=== PATIENT | male | born 1950 | race Caucasian/White ===

== ENCOUNTER 2016-08-03 15:23 | Emergency (ER) | payer OTHER ==
[2016-08-03 16:15] VITALS: BP 138/87
[2016-08-03] MEDS ORDERED: Bacitracin Oint 1 GM U/D Packet TOP ONE (17:38)
--- NOTE | 2016-08-03 17:42 | EDM.PDOC ---
ED HPI Skin/Rash - General Chief Complaint: Laceration Stated Complaint: CUT MIDDLE FINGER ON RT HAND Time Seen by Provider: 08/03/16 16:34 Source: Reports: Patient, RN notes reviewed History Limitations: Reports: No limitations - History of Present Illness INITIAL COMMENTS - FREE TEXT/NARRATIVE: 65-year-old gentleman presents emergency department today with a laceration to digit #3 on his right hand he injured himself with a table saw he has no functional complaints bleeding is controlled - Related Data Allergies Allergy/AdvReac Type Severity Reaction Status Date / Time No Known Allergies Allergy Verified 08/03/16 16:25 Home Meds: Ambulatory Orders Medication Instructions Recorded Confirmed Simvastatin [Zocor] 40 mg PO BEDTIME 08/03/16 08/03/16 Past Medical History Cardiovascular History: Reports: High cholesterol - Infectious Disease History Infectious Disease History: Reports: Chicken pox - Past Surgical History Musculoskeletal Surgical History: Reports: Other (see below) Other Musculoskeletal Surgeries/Procedures:: knee replacement Social & Family History - Tobacco Use Smoking Status *Q: Never Smoker - Caffeine Use Caffeine Use: Reports: Soda - Recreational Drug Use Recreational Drug Use: No ED ROS GENERAL - Review of Systems Review Of Systems: See Below Constitutional: Reports: no symptoms Respiratory: Reports: no symptoms Cardiovascular: Reports: No symptoms Musculoskeletal: Reports: no symptoms Skin: Reports: wound ED EXAM, SKIN/RASH Exam: See Below Text/Narrative:: examination of the right hand there is a 2 cm laceration distal tip of digit #3 it is jagged he has full range motion of digits radial pulses 2+ sensation is intact Exam Limited By: No limitations General Appearance: alert, WD/WN, no apparent distress Course - Vital Signs Last Recorded V/S: Last Vital Signs Temp 97.9 F 08/03/16 16:14 Pulse 71 08/03/16 16:14 Resp 16 08/03/16 16:14 BP 138/87 08/03/16 16:14 Pulse Ox 99 08/03/16 16:14 - Orders/Labs/Meds Orders: Active Orders 24 hr Category Date Time Status Fingers Third Digit Rt F7 [CR] Stat Exams 08/03/16 16:37 Taken Bacitracin [Bacitracin Oint 1 GM] Med 08/03/16 17:38 Once 1 dose TOP ONETIME ONE Meds: Medications Discontinued Medications Generic Name Dose Route Start Last Admin Trade Name Freq PRN Reason Stop Dose Admin Lidocaine HCl 5 ml 08/03/16 16:57 08/03/16 17:30 Xylocaine-Mpf 1% INJECT 08/03/16 16:58 5 ml ONETIME ONE Administration Departure - Departure Time of Disposition: 17:42 Disposition: Home, Self-Care 01 Condition: good Clinical Impression: Laceration of right middle finger Forms: ED Department Discharge Additional Instructions: follow up care instruction sheet, suture removal in 10 days call or return to the ED with worsening of symptoms - My Orders Last 24 Hours: My Active Orders 08/03/16 16:37 Fingers Third Digit Rt F7 [CR] Stat 08/03/16 17:38 Bacitracin [Bacitracin Oint 1 GM] 1 dose TOP ONETIME ONE - Assessment/Plan Last 24 Hours: My Active Orders 08/03/16 16:37 Fingers Third Digit Rt F7 [CR] Stat 08/03/16 17:38 Bacitracin [Bacitracin Oint 1 GM] 1 dose TOP ONETIME ONE Plan: Assessment Acuity = acute Site and laterality = 2 cm laceration distal tip right hand completely through the dermis Etiology = secondary to table saw injury Manifestations = none Location of injury = home Lab values = x-ray of digit #3 I did review films myself I cannot appreciate any acute process, the official read from radiology is pending Plan suture removal in 10 days, follow wound care instruction sheet Patient was in agreement with the plan all questions were answered, they were instructed to return to the emergency department or call for worsening symptoms. This note was dictated using [employer] voice recognition software please call with any questions.
--- NOTE | 2016-08-04 08:49 | CR ---
No fracture. Degenerative changes second DIP joint.
== END 2016-08-03 17:48 | disposition home or self-care (01) ==
LOC: JP.ED 15:23
DX: S61.212A Laceration without foreign body of right middle finger without damage to nail, initial encounter (principal); E78.00 Pure hypercholesterolemia, unspecified; Z98.890 Other specified postprocedural states; W26.8XXA Contact with other sharp object(s), not elsewhere classified, initial encounter
CPT/HCPCS: 73140-26-F7; 73140-F7; 99283

== ENCOUNTER 2019-10-18 15:05 | Emergency (ER) | payer MEDICARE, OTHER ==
[2019-10-18] MEDS ORDERED: Lactated Ringers 1,000 ML IV ONE (16:14)
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
[2019-10-18 17:52] VITALS: BP 127/83; PULSE 68
--- NOTE | 2019-10-18 18:00 | CRLCT ---
INDICATION: Syncope TECHNIQUE: CT head without contrast. COMPARISON: None. FINDINGS: CSF spaces: Within normal limits for age. Brain parenchyma: Mild cerebral atrophy without intracranial bleed or mass effect. Aden-white differentiation is distinct. Skull base and calvarium: Trace mucosal thickening paranasal sinuses. The visualized orbits are grossly unremarkable. No skull fractures. IMPRESSION: Mild cerebral atrophy, otherwise unremarkable noncontrast head CT. Please note that all CT scans at this facility use dose modulation, iterative reconstruction, and/or weight-based dosing when appropriate to reduce radiation dose to as low as reasonably achievable. Dictated by Shmuel Courtney MD @ Oct 18 2019 5:52PM Signed by Dr. Shmuel Courtney @ Oct 18 2019 5:59PM
== END 2019-10-18 18:34 | disposition home or self-care (01) ==
LOC: JP.ED 15:05
DX: F10.129 Alcohol abuse with intoxication, unspecified (principal); Y90.8 Blood alcohol level of 240 mg/100 ml or more; E78.00 Pure hypercholesterolemia, unspecified; Z79.82 Long term (current) use of aspirin; Z79.899 Other long term (current) drug therapy
CPT/HCPCS: 36415; 70450; 80053; 80307; 81001; 84484; 85027; 96360; 99283; 99284; J7120